=== PATIENT | male | born 1985 | race Two or more races ===

== ENCOUNTER 2020-01-15 01:25 | Emergency (ER) | payer SELFPAY ==
[~2020-01-15] VITALS: Ht 177.8 cm; Wt 99.8 kg
--- NOTE | 2020-01-15 01:28 | NUR ---
PATIENT CAME TO ER BED 9 C/O LEFT ANKLE PAIN. PATIENT STATES THAT AROUND 1700 YESTERDAY, HE ROLLED HIS ANKLE AND CALLED 911. THE PATIENT STATES THAT RA WRAPPED HIS ANKLE WITH YAMIL BANDAGES AND LEFT. PATIENT EXACERBATED HIS ANKLE INJURY BY ROLLING ON IT AGAIN. SWELLING NOTED ON THE LEFT ANKLE AAOX4. NO SOB. BREATHING EVENLY AND UNLABORED ON ROOM AIR.
[2020-01-15] MEDS ORDERED: KETOROLAC TROMETHAMINE INJ 30 MG/ML VIAL ONE (01:42)
--- NOTE | 2020-01-15 01:50 | NUR ---
XRAY AT BEDSIDE
[2020-01-15] MEDS ORDERED: KETOROLAC TROMETHAMINE INJ 30 MG/ML VIAL IM ONE (02:00)
--- NOTE | 2020-01-15 02:24 | NUR ---
PT WAS PROVIDED W/ L ANKLE YAMIL WRAP AND CRUTCHES. PT WAS INSTRUCTED RE USE OF CRUTCHES W/ DEMONSTRATIONS. MEDICALLY CLEAR FOR D/C , Patient discharged to home in stable condition. Written and verbal after care instructions given. Patient verbalizes understanding of instruction. will provide ride back home.
[2020-01-15 02:26] VITALS: BP 121/78
== END 2020-01-15 02:27 | disposition home or self-care (01) ==
LOC: ER 01:27
DX: S93.492A Sprain of other ligament of left ankle, initial encounter (principal); F17.200 Nicotine dependence, unspecified, uncomplicated; Z88.6 Allergy status to analgesic agent; X50.1XXA Overexertion from prolonged static or awkward postures, initial encounter; Y93.89 Activity, other specified; Y92.89 Other specified places as the place of occurrence of the external cause; Y99.8 Other external cause status
CPT/HCPCS: 73600; 96372; 99283; J1885